=== PATIENT | female | born 1935 | race Caucasian/White ===

== ENCOUNTER → 2017-03-12 11:22 | Outpatient (CLI) | payer MEDICARE ==
[2015-01-29 13:52] VITALS: BMI 18.1
[~2017-03-12 11:22] MED LIST: BAYER CHEWABLE81 MG PO; BUSPAR 15 MG TA15 MG PO; DOXEPIN HCL10 MG PO; HYDROCODONE-APA1 TAB PO; IMDUR30 MG PO; PLAVIX75 MG; PRILOSEC20 MG PO; REMERON15 MG PO
== END | disposition home or self-care (01) ==
LOC: D.CT 11:22
DX: J44.9 Chronic obstructive pulmonary disease, unspecified (principal)

== ENCOUNTER 2017-07-23 15:10 | Outpatient (CLI) | payer MEDICARE ==
[2017-07-23] MEDS ORDERED: VENTOLIN HFA18 GM INH (15:40)
[2017-07-23] MEDS ORDERED: SYMBICORT 16010.2 GM INH (15:40)
[2017-07-23] MEDS ORDERED: METOPROLOL TART50 MG PO (15:42)
[2017-07-23] MEDS ORDERED: NEURONTIN 300300 MG PO (15:42)
[2017-07-23] MEDS ORDERED: FLOVENT DI50 MCG/DIS INH (15:43)
[2017-07-23] MEDS ORDERED: PREDNISONE10 MG PO (15:44)
[2017-07-23] MEDS ORDERED: VIBRAMYCIN 100100 MG PO (15:44)
[2017-07-23] MEDS ORDERED: ISOSORBIDE MONO20 MG PO (15:45)
[2017-07-23 15:54] VITALS: BP 105/37; BMI 18.9
== END 2017-07-23 22:22 | disposition home or self-care (01) ==
LOC: D.OPS 15:10
DX: D64.9 Anemia, unspecified (principal)